=== PATIENT | male | born 1980 | race African-American/Black ===

== ENCOUNTER 2016-09-28 09:33 | Inpatient (IN) | payer MEDICARE, MEDICAID ==
[~2016-09-28] VITALS: Ht 180.3 cm; Wt 83.0 kg
[2016-09-28] MEDS ORDERED: IV NORMAL SALINE 1000ML BAG 1,000 ML IV ONE (10:00)
[2016-09-28] MEDS ORDERED: HYDROCODONE/APAP 5/325MG TABLET. PO ONE (10:00)
[2016-09-28] MEDS ORDERED: ONDANSETRON ODT 4 MG TAB.RAPDIS PO ONE (10:00)
--- NOTE | 2016-09-28 10:10 | EKG ---
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
[2016-09-28 10:20] LABS: BILIRUBIN,URINE NEGATIVE (NEG); GLUCOSE,URINE >=1000 mg/dL (NEG); NITRITE,URINE NEGATIVE (NEG); PROTEIN,URINE NEGATIVE (NEG-TRACE); UROBILINOGEN,URINE 0.2 mg/dL (0.2 mg/dL)
[2016-09-28 10:23] LABS: BASO # 0.1 x10^3/uL (0.0-0.2); BASO % 1 % (0-3); EOS % 4 % (0-3); HEMATOCRIT 47.2 % (39.0-53.0); HEMOGLOBIN 15.4 g/dL (13.0-17.5); LYMPH # 2.7 x10^3/uL (1.0-4.8); LYMPH % 55 % (24-48); MEAN CORPUSCULAR HEMOGLOBIN 24 pg (25-35); MEAN CORPUSCULAR HGB CONC 33 g/dL (31-37); MEAN CORPUSCULAR VOLUME 74 fL (79-100); MONO % 7 % (0-9); NEUT % 33 % (31-73); PLATELET COUNT 301 x10^3/uL (140-400); RED BLOOD COUNT 6.35 x10^6/uL (4.30-5.70); RED CELL DISTRIBUTION WIDTH 12.8 % (11.5-14.5); WHITE BLOOD COUNT 4.9 x10^3/uL (4.0-11.0)
[2016-09-28 10:36] LABS: CALCIUM 9.6 mg/dL (8.5-10.1); GFR 101.7; POTASSIUM 4.4 mmol/L (3.5-5.1)
[2016-09-28 10:38] LABS: RBC,URINE 0 /HPF (0-2); WBC,URINE 0 /HPF (0-4)
[2016-09-28 10:39] LABS: BACTERIA,URINE 0 /HPF (0-FEW); SQUAMOUS EPITHELIAL CELL,UR OCC /LPF
--- NOTE | 2016-09-28 10:42 | RAD ---
Portable chest, 09/28/2016: History: Cough, chest pain The heart size and pulmonary vascularity are normal. No pulmonary infiltrates are seen. There is no evidence of pleural fluid. IMPRESSION: No acute cardiopulmonary abnormality is detected.
[2016-09-28 10:46] LABS: ALBUMIN 4.1 g/dL (3.4-5.0); DIRECT BILIRUBIN 0.2 mg/dL (0.0-0.2); TOTAL BILIRUBIN 0.6 mg/dL (0.2-1.0); TOTAL PROTEIN 7.4 g/dL (6.4-8.2)
[2016-09-28] MEDS ORDERED: ENOXAPARIN ** NOTE DOSE ** SYRINGE SQ ONE (11:00)
[2016-09-28] MEDS ORDERED: ASPIRIN 81 MG TAB.CHEW PO ONE (11:00)
[2016-09-28] MEDS ORDERED: ONDANSETRON PF 4 MG/2 ML VIAL. IV PRN (11:30)
[2016-09-28] MEDS: NITROGLYCERIN SUBLINGUAL 0.4 MG BOTTLE OF 25. SL PRN ×3 (11:42→11:53)
[2016-09-28] MEDS ORDERED: INSULIN REGULAR 100 UNIT/ML 10ML VIAL. IV ONE (11:45)
--- NOTE | 2016-09-28 11:50 | EKG ---
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
[2016-09-28] MEDS: MORPHINE SULFATE 2 MG/ML DISP.SYRIN. IV PRN ×3 (11:57→23:26)
--- NOTE | 2016-09-28 12:07 | ACF ---
Admission Forms Criteria MYOCARDIAL INFARCTION Clinical Indications for Admission to Inpatient Care (Place 'X' for any and all applicable criteria): Admission is indicated for ANY ONE of the following (1)(2)(3)(4): [X]I. Acute NM [ ]II. Contraindications and/or Inappropriate clinical situations for Observational Care in patients with Myocardial Infarction, when ANY ONE of the following is required: [ ]a) Patient with High risk of cardiac embolism (e.g, patients with previous cardiac embolism, LVEF < 40%, age >75 and patients with prosthetic valve) 18 [ ]b) Patient with Moderate risk including DM patient, CAD and patient aged 65-75 18 [ ]c) Patient with any change in cardiac biomarker especially troponin should be managed as high risk in an inpatient setting 19 [ ]d) Physician judgement irrespective of ECG and other diagnostic findings 20 [ ]III.General contraindications and/or Inappropriate clinical situations for Observational Care in patients with Myocardial Infarction, when ANY ONE of the following is required: [ ]a) Prediction of prolongation of LOS based on ANY ONE of the following may be considered as a contraindication for observational care 2, 3, 4, 5, 6, 7, 8, 9, 10, 11 [ ]i) Age > 65 yrs. [ ]ii) Patient arriving by ambulance [ ]iii) Patient with high acuity [ ]iv) Patient requiring vital sign monitoring [ ]v) Patient on IV medication [ ]b) Systolic blood pressures 180mmHg 3,12 [ ]c) Patient with altered mental status including delirium and other alteration of consciousness, (3) [ ]d) Patient whose discharge disposition will be to a usp home or rehabilitation home should not be managed in Emergency Department Observation Unit. CMS rule requires 3 days hospital stay before such placement. 3,13 [ ]e) Patient with failure to thrive due to broad array of etiologies 3 ,16,17 [ ]f) Inability to ambulate 3,14 Extended stay beyond goal length of stay may be needed for (1)(18)(20)(24)(25): [ ]a) Hemodynamic instability, persisting symptoms after intensive medical management, or recurring severe, prolonged symptoms [ ]b) Intravascular procedural complications such as acute vessel closure, stent thrombosis, stent malposition, or vessel dissection (26)(27)(28) [ ]c) Extravascular procedural complications such as retroperitoneal hematoma , pericardial effusion, or cardiac tamponade [ ]d) Entry site complications causing bleeding, hematoma or distal ischemia and requiring ongoing monitoring, surgical repair or surgical thrombectomy(29) [ ]e) Dangerous arrhythmia [ ]f) Complicated percutaneous coronary intervention (e.g., unsuccessful percutaneous coronary intervention or percutaneous coronary intervention of non- [place] vessel) [ ]g) Urgent or emergent surgery for complications of NM (e.g., ventricular rupture, valvular insufficiency) [ ]h) Surgical revascularization via coronary artery bypass graft [ ]i) Heart failure (e.g., pulmonary edema) [ ]j) Unstable pulmonary comorbidities, including COPD or pneumonia (31) [ ]k) Acute renal failure The original [employer] content created by [employer] has been revised. The portions of the content which have been revised are identified through the use of italic text or in bold, and [facility] has neither reviewed nor approved the modified material. All other unmodified content is copyright [facility] [employer] Please see references footnoted in the original [facility] edition 2016 Admission Criteria Met?: Yes MARIYA LAGUNA Sep 28, 2016 12:07
--- NOTE | 2016-09-28 12:22 | PHYS DOC ---
Past Medical History Past Medical History: No Pertinent History Past Surgical History: No Surgical History Alcohol Use: None Drug Use: None Adult General Chief Complaint Chief Complaint: MULTIPLE COMPLAINTS HPI HPI 36-year-old male presenting to the emergency department with chest pain that he describes as substernal pressure. This all started approximately 48 hours ago when he woke up from his sleep with a pressure in the chest. He reports it feeling like a GERD-like sensation. He tried taking [id number] medications for acid suppression which did not improve his symptoms. His pain is intermittent. It is nonradiating. He denies alleviating or exacerbating factors. Review of systems is negative for abdominal pain nausea vomiting diaphoresis. He denies numbness weakness or tingling. All other review of systems is negative unless otherwise noted in history of present illness. Review of Systems Review of Systems SEE ABOVE. Current Medications Current Medications Current Medications Medications (Trade) Dose Ordered Sig/Joe Start Time Stop Time Status Last Admin Dose Admin Acetaminophen/ Hydrocodone Bitart (Lortab 5/325) 2 tab 1X ONCE 09/28/16 10:00 09/28/16 10:01 DC 09/28/16 11:17 2 TAB Aspirin (Children'S Aspirin) 324 mg 1X ONCE 09/28/16 11:00 09/28/16 11:01 DC 09/28/16 11:18 324 MG Enoxaparin Sodium (Lovenox 100mg Syringe) 100 mg 1X ONCE 09/28/16 11:00 09/28/16 11:01 DC 09/28/16 11:25 100 MG Insulin Human Regular (Novolin R Vial) 10 unit 1X ONCE 09/28/16 11:45 09/28/16 11:46 DC 09/28/16 11:43 10 UNIT Morphine Sulfate 2 mg PRN Q2HR PRN 09/28/16 11:30 09/29/16 11:29 Nitroglycerin (Nitrostat) 0.4 mg PRN Q5MIN PRN 09/28/16 11:00 09/28/16 11:53 0.4 MG Ondansetron HCl (Zofran Odt) 4 mg 1X ONCE 09/28/16 10:00 09/28/16 10:01 DC 09/28/16 11:25 4 MG Ondansetron HCl (Zofran) 4 mg PRN Q8HRS PRN 09/28/16 11:30 09/29/16 11:29 Sodium Chloride (Iv Sodium Chloride 0.9% 1000ml Bag) 1,000 ml @ 1,000 mls/hr 1X ONCE 09/28/16 10:00 09/28/16 10:59 DC 09/28/16 11:18 1,000 MLS/HR Allergies Allergies Allergies Coded Allergies Type Severity Reaction Last Updated Verified No Known Drug Allergies 12/23/13 No Physical Exam Physical Exam Constitutional: Well developed, well nourished, no acute distress, non-toxic appearance. HENT: Normocephalic, atraumatic, bilateral external ears normal, oropharynx moist, no oral exudates, nose normal. [] Eyes: PERRLA, EOMI, conjunctiva normal, no discharge. [] Neck: Normal range of motion, no tenderness, supple, no stridor. Cardiovascular:Heart rate regular rhythm, no murmur [] Lungs & Thorax: Bilateral breath sounds clear to auscultation [] Abdomen: Bowel sounds normal, soft, no tenderness, no masses, no pulsatile masses. Skin: Warm, dry, no erythema, no rash. [] Back: No tenderness, no CVA tenderness. Extremities: No tenderness, no cyanosis, no clubbing, ROM intact, no edema. [] Neurologic: Alert and oriented X 3, normal motor function, normal sensory function, no focal deficits noted. [] Psychologic: Affect normal, judgement normal, mood normal. [] Current Patient Data Vital Signs Vital Signs Date Time Temp Pulse Resp B/P Pulse Ox O2 Delivery O2 Flow Rate FiO2 09/28/16 11:57 116 18 97 Room Air 09/28/16 09:45 97.2 97.2 Lab Values Laboratory Tests Test 09/28/16 10:00 White Blood Count 4.9x10^3/uL (4.0-11.0) Red Blood Count 6.35x10^6/uL (4.30-5.70) H Hemoglobin 15.4g/dL (13.0-17.5) Hematocrit 47.2% (39.0-53.0) Mean Corpuscular Volume 74fL (79-100) L Mean Corpuscular Hemoglobin 24pg (25-35) L Mean Corpuscular Hemoglobin Concent 33g/dL (31-37) Red Cell Distribution Width 12.8% (11.5-14.5) Platelet Count 301x10^3/uL (140-400) Neutrophils (%) (Auto) 33% (31-73) Lymphocytes (%) (Auto) 55% (24-48) H Monocytes (%) (Auto) 7% (0-9) Eosinophils (%) (Auto) 4% (0-3) H Basophils (%) (Auto) 1% (0-3) Neutrophils # (Auto) 1.6x10^3uL (1.8-7.7) L Lymphocytes # (Auto) 2.7x10^3/uL (1.0-4.8) Monocytes # (Auto) 0.3x10^3/uL (0.0-1.1) Eosinophils # (Auto) 0.2x10^3/uL (0.0-0.7) Basophils # (Auto) 0.1x10^3/uL (0.0-0.2) Urine Collection Type Unknown Urine Color Yellow Urine Clarity Clear Urine pH 5.0 Urine Specific [place] >=1.030 Urine Protein Negativemg/dL (NEG-TRACE) Urine Glucose (UA) >=1000mg/dL (NEG) Urine Ketones (Stick) Tracemg/dL (NEG) Urine Blood Negative (NEG) Urine Nitrite Negative (NEG) Urine Bilirubin Negative (NEG) Urine Urobilinogen Dipstick 0.2mg/dL (0.2 mg/dL) Urine Leukocyte Esterase Negative (NEG) Urine RBC 0/HPF (0-2) Urine WBC 0/HPF (0-4) Urine Squamous Epithelial Cells Occ/LPF Urine Bacteria 0/HPF (0-FEW) Urine Mucus Slight/LPF Sodium Level 135mmol/L (136-145) L Potassium Level 4.4mmol/L (3.5-5.1) Chloride Level 95mmol/L (98-107) L Carbon Dioxide Level 30mmol/L (21-32) Anion Gap 10 (6-14) Blood Urea Nitrogen 9mg/dL (8-26) Creatinine 1.0mg/dL (0.7-1.3) Estimated GFR (Cockcroft-Gault) 101.7 Glucose Level 405mg/dL (70-99) H Calcium Level 9.6mg/dL (8.5-10.1) Total Bilirubin 0.6mg/dL (0.2-1.0) Direct Bilirubin 0.2mg/dL (0.0-0.2) Aspartate Amino Transferase (AST) 15U/L (15-37) Alanine Aminotransferase (ALT) 21U/L (16-63) Alkaline Phosphatase 72U/L (46-116) Troponin I Quantitative 0.232ng/mL (0.000-0.055) Total Protein 7.4g/dL (6.4-8.2) Albumin 4.1g/dL (3.4-5.0) Lipase 216U/L (73-393) Laboratory Tests 09/28/16 10:00 Laboratory Tests 09/28/16 10:00 EKG EKG [] EKG repeated 2 First EKG at 9:57 AM shows sinus rhythm with a tachycardic rate. [place] normal. Intervals are within normal limits. ST segments are congruent. Second EKG performed at 1058 shows no acute evolving changes. Radiology/Procedures Radiology/Procedures [] Course & Med Decision Making Course & Med Decision Making Pertinent Labs and Imaging studies reviewed. (See chart for details) [] 36-year-old male presenting to the emergency department today with chest pain over the past 48 hours. Vital signs show a tachycardic otherwise unremarkable afebrile. Aspirin given, nitroglycerin given. On examination the patient has clear lungs. Otherwise physical exam unremarkable. EKG did not meet STEMI criteria. CBC unremarkable. Urinalysis showed dehydration with high glucosuria. Chemistry panel otherwise showed elevated glucose with increasing troponin. On reexamination after nitroglycerin was given the patient's pain improved. He was given Lovenox. I discussed the case with our local [place] truck driver Dr. mena. The patient was then admitted to our cardiovascular care unit for further evaluation workup and care. Echo ordered. Cardiology consult placed. Dragon Disclaimer Dragon Disclaimer This electronic medical record was generated, in whole or in part, using a voice recognition dictation system. Departure Departure Impression: Primary Impression: Elevated troponin Additional Impressions: NSTEMI (non-ST elevated myocardial infarction) Chest pain Disposition: ADMITTED INPATIENT Admitting Physician: Bruce Moreira Condition: STABLE Referrals: NO PCP (PCP) Problem Qualifiers CAMPBELL CASTELLANOS MD Sep 28, 2016 12:22
[2016-09-28 12:30] VITALS: BP 91/58
--- NOTE | 2016-09-28 12:56 | PDOC2 ---
NANI WADSWORTH TREE CHIPPER 09/28/16 1256: CARDIAC CONSULT DATE OF CONSULT Date of Consult DATE: 09/28/16 TIME: 12:47 REASON FOR CONSULT Reason for Consult: Positive troponin REFERRING PHYSICIAN Referring Physician: Bryn SOURCE Source: Chart review, Patient HISTORY OF PRESENT ILLNESS HISTORY OF PRESENT ILLNESS This is a pleasant 36 yo male admitted for complains of chest pain. Reports that he has been having intermittent mid chest pain in the last week. He thought it was indigestion and actually he has been trying to relieve with pecid and tums. It helped to a certain degree and but pain kept on going on. In the last 48 hours he has had increasing episodes of retrosternal sharp (woke him up with nightmare) to pressure discomfort that radiated to his right jaw and bilateral upper arms. Positive for nausea, diaphoresis, dizziness. No palpitations. Denies any prior medical history. Denies any fever chills, recent injury or falls. No hx of VTE nor any childhood heart disease. He does not take any routine Rx or OTC meds. PAST MEDICAL HISTORY Past Medical History No pertinent history PAST SURGICAL HISTORY Past Surgical History: Cataract Removal FAMILY HISTORY Family History: Coronary Artery Disease (father side of family aunts and uncles ) SOCIAL HISTORY Smoke: No ALCOHOL: none Drugs: None Lives: with Family CURRENT MEDICATIONS CURRENT MEDICATIONS Current Medications Medications (Trade) Dose Ordered Sig/Joe Route PRN Reason Start Time Stop Time Status Last Admin Dose Admin Sodium Chloride (Iv Sodium Chloride 0.9% 1000ml Bag) 1,000 ml @ 1,000 mls/hr 1X ONCE IV 09/28/16 10:00 09/28/16 10:59 DC 09/28/16 11:18 Acetaminophen/ Hydrocodone Bitart (Lortab 5/325) 2 tab 1X ONCE PO 09/28/16 10:00 09/28/16 10:01 DC 09/28/16 11:17 Ondansetron HCl (Zofran Odt) 4 mg 1X ONCE PO 09/28/16 10:00 09/28/16 10:01 DC 09/28/16 11:25 Aspirin (Children'S Aspirin) 324 mg 1X ONCE PO 09/28/16 11:00 09/28/16 11:01 DC 09/28/16 11:18 Nitroglycerin (Nitrostat) 0.4 mg PRN Q5MIN PRN SL CHEST PAIN 09/28/16 11:00 09/28/16 11:53 Morphine Sulfate 2 mg PRN Q1HR PRN IV SEVERE PAIN 09/28/16 11:00 09/28/16 11:57 Enoxaparin Sodium (Lovenox 100mg Syringe) 100 mg 1X ONCE SQ 09/28/16 11:00 09/28/16 11:01 DC 09/28/16 11:25 Insulin Human Regular (Novolin R Vial) 10 unit 1X ONCE IV 09/28/16 11:45 09/28/16 11:46 DC 09/28/16 11:43 ALLERGIES ALLERGIES: Coded Allergies: No Known Drug Allergies (Unverified , 12/23/13) ROS Review of System 14 point ROS evaluated with pertinent positives noted per HPI PHYSICAL EXAM General: Alert, Oriented X3, Cooperative, No acute distress HEENT: Atraumatic, Mucous membr. moist/pink Lungs: Clear to auscultation, Normal air movement Heart: Regular rate, Normal S1, Normal S2, No murmurs Abdomen: Soft, No tenderness Extremities: No cyanosis, No edema Skin: No significant lesion Neuro: Normal speech, Normal tone, Sensation intact Psych/Mental Status: Mental status NL, Mood NL MUSCULOSKELETAL: Osteoarthritic changes both hands VITALS VITALS Vital Signs Date Time Temp Pulse Resp B/P Pulse Ox O2 Delivery O2 Flow Rate FiO2 09/28/16 11:57 116 18 97 Room Air 09/28/16 09:45 97.2 97.2 LABS Lab: Laboratory Tests Test 09/28/16 10:00 White Blood Count 4.9x10^3/uL (4.0-11.0) Red Blood Count 6.35x10^6/uL (4.30-5.70) Hemoglobin 15.4g/dL (13.0-17.5) Hematocrit 47.2% (39.0-53.0) Mean Corpuscular Volume 74fL (79-100) Mean Corpuscular Hemoglobin 24pg (25-35) Mean Corpuscular Hemoglobin Concent 33g/dL (31-37) Red Cell Distribution Width 12.8% (11.5-14.5) Platelet Count 301x10^3/uL (140-400) Neutrophils (%) (Auto) 33% (31-73) Lymphocytes (%) (Auto) 55% (24-48) Monocytes (%) (Auto) 7% (0-9) Eosinophils (%) (Auto) 4% (0-3) Basophils (%) (Auto) 1% (0-3) Neutrophils # (Auto) 1.6x10^3uL (1.8-7.7) Lymphocytes # (Auto) 2.7x10^3/uL (1.0-4.8) Monocytes # (Auto) 0.3x10^3/uL (0.0-1.1) Eosinophils # (Auto) 0.2x10^3/uL (0.0-0.7) Basophils # (Auto) 0.1x10^3/uL (0.0-0.2) Urine Collection Type Unknown Urine Color Yellow Urine Clarity Clear Urine pH 5.0 Urine Specific [place] >=1.030 Urine Protein Negativemg/dL (NEG-TRACE) Urine Glucose (UA) >=1000mg/dL (NEG) Urine Ketones (Stick) Tracemg/dL (NEG) Urine Blood Negative (NEG) Urine Nitrite Negative (NEG) Urine Bilirubin Negative (NEG) Urine Urobilinogen Dipstick 0.2mg/dL (0.2 mg/dL) Urine Leukocyte Esterase Negative (NEG) Urine RBC 0/HPF (0-2) Urine WBC 0/HPF (0-4) Urine Squamous Epithelial Cells Occ/LPF Urine Bacteria 0/HPF (0-FEW) Urine Mucus Slight/LPF Sodium Level 135mmol/L (136-145) Potassium Level 4.4mmol/L (3.5-5.1) Chloride Level 95mmol/L (98-107) Carbon Dioxide Level 30mmol/L (21-32) Anion Gap 10 (6-14) Blood Urea Nitrogen 9mg/dL (8-26) Creatinine 1.0mg/dL (0.7-1.3) Estimated GFR (Cockcroft-Gault) 101.7 Glucose Level 405mg/dL (70-99) Calcium Level 9.6mg/dL (8.5-10.1) Total Bilirubin 0.6mg/dL (0.2-1.0) Direct Bilirubin 0.2mg/dL (0.0-0.2) Aspartate Amino Transf (AST/SGOT) 15U/L (15-37) Alanine Aminotransferase (ALT/SGPT) 21U/L (16-63) Alkaline Phosphatase 72U/L (46-116) Troponin I Quantitative 0.232ng/mL (0.000-0.055) Total Protein 7.4g/dL (6.4-8.2) Albumin 4.1g/dL (3.4-5.0) Lipase 216U/L (73-393) ASSESSMENT/PLAN ASSESSMENT/PLAN 1. NSTEMI 2. Hyperglycemia: likely new DM2 3. Obesity Recommendations 1. EKG reviewed with inferolateral changes initially then better on second EKG. TTE now. 2. ASA. Received lovenox in ED 3. TSH, lipid panel, A1C 4. Discussed [facility] risks and benefits and agreeable to proceed. 5. Secondary prevention to commence post [facility] Problems: FRANCISCO JAVIER CONDE MD 09/28/16 1403: CARDIAC CONSULT ALLERGIES ALLERGIES: Coded Allergies: No Known Drug Allergies (Unverified , 12/23/13) ASSESSMENT/PLAN ASSESSMENT/PLAN Patient seen and examined. Agree with GAS CONTROLLER's assessment and plan. Patient with chest pain showed dynamic changes on EKG and has slight elevation of troponin level consistent with non-STEMI. 2-D echo showed anteroseptal wall motion abnormality. We'll proceed with cardiac catheterization and possible angioplasty. Risks and benefits were explained. Thank you for the consultation. Problems: NANI WADSWORTH APRN Sep 28, 2016 12:56 FRANCISCO JAVIER CONDE MD Sep 28, 2016 14:03
[2016-09-28 13:34] LABS: CHOLESTEROL/HDL RATIO 2.4
--- NOTE | 2016-09-28 13:40 | PDOC1 ---
History and Physical Past Medical History Cardiovascular: No pertinent hx Past Surgical History Past Surgical History: No pertinent history Family History Family History: Coronary Artery Disease, Hypertension Social History Smoke: No ALCOHOL: none Drugs: None Current Problem List Problem List Problems Medical Problems: (1) Chest pain Status: Acute (2) Elevated troponin Status: Acute (3) NSTEMI (non-ST elevated myocardial infarction) Status: Acute Current Medications Current Medications Current Medications Medications (Trade) Dose Ordered Sig/Joe Start Time Stop Time Status Last Admin Dose Admin Acetaminophen/ Hydrocodone Bitart (Lortab 5/325) 2 tab 1X ONCE 09/28/16 10:00 09/28/16 10:01 DC 09/28/16 11:17 2 TAB Aspirin (Children'S Aspirin) 324 mg 1X ONCE 09/28/16 11:00 09/28/16 11:01 DC 09/28/16 11:18 324 MG Enoxaparin Sodium (Lovenox 100mg Syringe) 100 mg 1X ONCE 09/28/16 11:00 09/28/16 11:01 DC 09/28/16 11:25 100 MG Insulin Human Regular (Novolin R Vial) 10 unit 1X ONCE 09/28/16 11:45 09/28/16 11:46 DC 09/28/16 11:43 10 UNIT Morphine Sulfate 2 mg PRN Q2HR PRN 09/28/16 11:30 09/29/16 11:29 Nitroglycerin (Nitrostat) 0.4 mg PRN Q5MIN PRN 09/28/16 11:00 09/28/16 11:53 0.4 MG Ondansetron HCl (Zofran Odt) 4 mg 1X ONCE 09/28/16 10:00 09/28/16 10:01 DC 09/28/16 11:25 4 MG Ondansetron HCl (Zofran) 4 mg PRN Q8HRS PRN 09/28/16 11:30 09/29/16 11:29 Sodium Chloride (Iv Sodium Chloride 0.9% 1000ml Bag) 1,000 ml @ 1,000 mls/hr 1X ONCE 09/28/16 10:00 09/28/16 10:59 DC 09/28/16 11:18 1,000 MLS/HR Allergies Allergies Allergies Coded Allergies Type Severity Reaction Last Updated Verified No Known Drug Allergies 12/23/13 No ROS Review of System CONSTITUTIONAL: No fever or chills EYES: No recent changes SKIN: No rash or itching CARDIOVASCULAR: chest pain, no syncope, palpitations, or edema left arm pain RESPIRATORY: No SOB or cough GASTROINTESTINAL: No nausea, vomiting or abdominal pain NEUROLOGICAL: No headaches or weakness ENDOCRINE: No cold or heat intolerance GENITOURINARY: No urgency or frequency of urination MUSCULOSKELETAL: No back pain or joint pain LYMPHATICS: No enlarged lymph nodes PSYCHIATRIC: No anxiety or depression Physical Exam Physical Exam GEN.: No apparent distress. Alert and oriented. HEENT: Head is normocephalic, atraumatic NECK: Supple. no jvd LUNGS: Clear to auscultation. normal airflow HEART: RRR, S1, S2 present. Peripheral pulses intact ABDOMEN: Soft, nontender. Positive bowel sounds. EXTREMITIES: Without any cyanosis. NEUROLOGIC: Normal speech, normal tone PSYCHIATRIC: Normal affect, normal mood. SKIN: No visible ulcerations Vitals Vitals Vital Signs Date Time Temp Pulse Resp B/P Pulse Ox O2 Delivery O2 Flow Rate FiO2 09/28/16 12:30 98.7 112 30 91/58 98 Room Air 98.7 Labs Labs Laboratory Tests Test 09/28/16 10:00 White Blood Count 4.9x10^3/uL (4.0-11.0) Red Blood Count 6.35x10^6/uL (4.30-5.70) Hemoglobin 15.4g/dL (13.0-17.5) Hematocrit 47.2% (39.0-53.0) Mean Corpuscular Volume 74fL (79-100) Mean Corpuscular Hemoglobin 24pg (25-35) Mean Corpuscular Hemoglobin Concent 33g/dL (31-37) Red Cell Distribution Width 12.8% (11.5-14.5) Platelet Count 301x10^3/uL (140-400) Neutrophils (%) (Auto) 33% (31-73) Lymphocytes (%) (Auto) 55% (24-48) Monocytes (%) (Auto) 7% (0-9) Eosinophils (%) (Auto) 4% (0-3) Basophils (%) (Auto) 1% (0-3) Neutrophils # (Auto) 1.6x10^3uL (1.8-7.7) Lymphocytes # (Auto) 2.7x10^3/uL (1.0-4.8) Monocytes # (Auto) 0.3x10^3/uL (0.0-1.1) Eosinophils # (Auto) 0.2x10^3/uL (0.0-0.7) Basophils # (Auto) 0.1x10^3/uL (0.0-0.2) Urine Collection Type Unknown Urine Color Yellow Urine Clarity Clear Urine pH 5.0 Urine Specific [place] >=1.030 Urine Protein Negativemg/dL (NEG-TRACE) Urine Glucose (UA) >=1000mg/dL (NEG) Urine Ketones (Stick) Tracemg/dL (NEG) Urine Blood Negative (NEG) Urine Nitrite Negative (NEG) Urine Bilirubin Negative (NEG) Urine Urobilinogen Dipstick 0.2mg/dL (0.2 mg/dL) Urine Leukocyte Esterase Negative (NEG) Urine RBC 0/HPF (0-2) Urine WBC 0/HPF (0-4) Urine Squamous Epithelial Cells Occ/LPF Urine Bacteria 0/HPF (0-FEW) Urine Mucus Slight/LPF Sodium Level 135mmol/L (136-145) Potassium Level 4.4mmol/L (3.5-5.1) Chloride Level 95mmol/L (98-107) Carbon Dioxide Level 30mmol/L (21-32) Anion Gap 10 (6-14) Blood Urea Nitrogen 9mg/dL (8-26) Creatinine 1.0mg/dL (0.7-1.3) Estimated GFR (Cockcroft-Gault) 101.7 Glucose Level 405mg/dL (70-99) Calcium Level 9.6mg/dL (8.5-10.1) Total Bilirubin 0.6mg/dL (0.2-1.0) Direct Bilirubin 0.2mg/dL (0.0-0.2) Aspartate Amino Transf (AST/SGOT) 15U/L (15-37) Alanine Aminotransferase (ALT/SGPT) 21U/L (16-63) Alkaline Phosphatase 72U/L (46-116) Troponin I Quantitative 0.232ng/mL (0.000-0.055) Total Protein 7.4g/dL (6.4-8.2) Albumin 4.1g/dL (3.4-5.0) Triglycerides Level 113mg/dL (0-150) Cholesterol Level 124mg/dL (0-200) LDL Cholesterol, Calculated 49mg/dL (0-100) VLDL Cholesterol, Calculated 23mg/dL (0-40) HDL Cholesterol 52mg/dL (40-60) Cholesterol/HDL Ratio 2.4 Lipase 216U/L (73-393) Laboratory Tests Test 09/28/16 10:00 White Blood Count 4.9x10^3/uL (4.0-11.0) Red Blood Count 6.35x10^6/uL (4.30-5.70) Hemoglobin 15.4g/dL (13.0-17.5) Hematocrit 47.2% (39.0-53.0) Mean Corpuscular Volume 74fL (79-100) Mean Corpuscular Hemoglobin 24pg (25-35) Mean Corpuscular Hemoglobin Concent 33g/dL (31-37) Red Cell Distribution Width 12.8% (11.5-14.5) Platelet Count 301x10^3/uL (140-400) Neutrophils (%) (Auto) 33% (31-73) Lymphocytes (%) (Auto) 55% (24-48) Monocytes (%) (Auto) 7% (0-9) Eosinophils (%) (Auto) 4% (0-3) Basophils (%) (Auto) 1% (0-3) Neutrophils # (Auto) 1.6x10^3uL (1.8-7.7) Lymphocytes # (Auto) 2.7x10^3/uL (1.0-4.8) Monocytes # (Auto) 0.3x10^3/uL (0.0-1.1) Eosinophils # (Auto) 0.2x10^3/uL (0.0-0.7) Basophils # (Auto) 0.1x10^3/uL (0.0-0.2) Urine Collection Type Unknown Urine Color Yellow Urine Clarity Clear Urine pH 5.0 Urine Specific [place] >=1.030 Urine Protein Negativemg/dL (NEG-TRACE) Urine Glucose (UA) >=1000mg/dL (NEG) Urine Ketones (Stick) Tracemg/dL (NEG) Urine Blood Negative (NEG) Urine Nitrite Negative (NEG) Urine Bilirubin Negative (NEG) Urine Urobilinogen Dipstick 0.2mg/dL (0.2 mg/dL) Urine Leukocyte Esterase Negative (NEG) Urine RBC 0/HPF (0-2) Urine WBC 0/HPF (0-4) Urine Squamous Epithelial Cells Occ/LPF Urine Bacteria 0/HPF (0-FEW) Urine Mucus Slight/LPF Sodium Level 135mmol/L (136-145) Potassium Level 4.4mmol/L (3.5-5.1) Chloride Level 95mmol/L (98-107) Carbon Dioxide Level 30mmol/L (21-32) Anion Gap 10 (6-14) Blood Urea Nitrogen 9mg/dL (8-26) Creatinine 1.0mg/dL (0.7-1.3) Estimated GFR (Cockcroft-Gault) 101.7 Glucose Level 405mg/dL (70-99) Calcium Level 9.6mg/dL (8.5-10.1) Total Bilirubin 0.6mg/dL (0.2-1.0) Direct Bilirubin 0.2mg/dL (0.0-0.2) Aspartate Amino Transf (AST/SGOT) 15U/L (15-37) Alanine Aminotransferase (ALT/SGPT) 21U/L (16-63) Alkaline Phosphatase 72U/L (46-116) Troponin I Quantitative 0.232ng/mL (0.000-0.055) Total Protein 7.4g/dL (6.4-8.2) Albumin 4.1g/dL (3.4-5.0) Triglycerides Level 113mg/dL (0-150) Cholesterol Level 124mg/dL (0-200) LDL Cholesterol, Calculated 49mg/dL (0-100) VLDL Cholesterol, Calculated 23mg/dL (0-40) HDL Cholesterol 52mg/dL (40-60) Cholesterol/HDL Ratio 2.4 Lipase 216U/L (73-393) VTE Prophylaxis Ordered VTE Prophylaxis Devices: Yes VTE Pharmacological Prophylaxi: Yes LINDA NELSON MD Sep 28, 2016 13:40
[2016-09-28] MEDS ORDERED: LIDOCAINE 2% 20 ML VIAL. ONE (13:44)
[2016-09-28] MEDS ORDERED: DEXTROSE 50% 25 GM / 50ML DISP.SYRIN. IV PRN (13:45)
[2016-09-28] MEDS ORDERED: IOHEXOL 300 MG/ML 100ML VIAL. ONE (13:50)
[2016-09-28] MEDS: IV NORMAL SALINE 1000ML BAG 1,000 ML IV SCH (13:51)
--- NOTE | 2016-09-28 13:55 | CARD ---
APPROVED REPORT EXAM: Two-dimensional and M-mode echocardiogram with Doppler and color Doppler. Other Information Quality : Good INDICATION Abnormal ECG Positive Troponin 2D DIMENSIONS Left Atrium(2D)2.8 (1.6-4.0cm)IVSd1.2 (0.7-1.1cm) Aortic Root(2D)2.8 (2.0-3.7cm)LVDd4.1 (3.9-5.9cm) LVOT Diameter2.0 (1.8-2.4cm)PWd1.2 (0.7-1.1cm) LVDs2.9 (2.5-4.0cm)FS (%) 22.5 % SV41.8 ml Aortic Valve AoV Peak Bari.110.1cm/sAoV VTI13.9cm AO Peak GR.4.9mmHgLVOT VTI 11.96cm AO Mean GR.3mmHgAVA (VTI)2.80cm2 Mitral Valve MV E Pqqiteat01.2cm/sMV DECEL [id number] MV A Dfehuhia09.6cm/sE/A Ratio0.7 TDI Lateral E' P. V10.88cm/sMedial E' P. V6.82cm/s E/Lateral E'3.3E/Medial E'5.3 Tricuspid Valve TR P. Ohqfkhbd388jp/sRAP [id number] TR Peak Gr.02bfYlDQVX00zqFn Pulmonary Vein S1 Nqqsmjio84.8cm/sS2 Labhnmpi34.12cm/s D2 Iyilbezk52.1cm/sPVa [id number] LEFT VENTRICLE The left ventricle is normal size. There is mild concentric left ventricular hypertrophy. The Ejectio n Fraction is estimated at 45-50%. Hypokinesis of mid to distal anteroseptal wall. Transmitral Dopple r flow pattern is Grade I-abnormal relaxation pattern. RIGHT VENTRICLE The right ventricle is normal size. The right ventricular systolic function is normal. ATRIA The left atrium size is normal. The right atrium size is normal. The interatrial septum is intact wit h no evidence for an atrial septal defect or patent foramen ovale as noted on 2-D or Doppler imaging. AORTIC VALVE The aortic valve is calcified but opens well. Doppler and Color Flow revealed no significant aortic r egurgitation. There is no significant aortic valvular stenosis. MITRAL VALVE The mitral valve is normal in structure and function. There is no evidence of mitral valve prolapse. There is no mitral valve stenosis. Doppler and Color-flow revealed trace mitral regurgitation. TRICUSPID VALVE The tricuspid valve is normal in structure and function. Doppler and Color Flow revealed trace tricus pid regurgitation. There is no pulmonary hypertension. The PA pressure was estimated at 27 mmHg. Ther e is no tricuspid valve stenosis. PULMONIC VALVE The pulmonary valve is normal in structure and function. Doppler and Color Flow revealed no pulmonic valvular regurgitation. There is no pulmonic valvular stenosis. GREAT VESSELS The aortic root is normal in size. The ascending aorta is normal in size. The IVC is normal in size a nd collapses >50% with inspiration. PERICARDIAL EFFUSION There is no evidence of significant pericardial effusion. Critical Notification Critical Value: No <Conclusion> Hypokinesis of mid to distal anteroseptal wall. The Ejection Fraction is estimated at 45-50%. Transmitral Doppler flow pattern is Grade I-abnormal relaxation pattern. Trace mitral regurgitation. Trace tricuspid regurgitation. There is no pulmonary hypertension. The PA pressure was estimated at 27 mmHg. There is no evidence of significant pericardial effusion.
--- NOTE | 2016-09-28 14:01 | PDOC ---
MODERATE SEDATION ASSESSMENT RISKS/ALTERNATIVES Risks/Alternatives Risks and alternatives of this type of sedation and procedure discussed with: RISK/ALTERNATIVES: Patient H & P ON CHART H & P H & P on chart and reviewed for co-morbid conditions and appropriate labs. H&P ON CHART: Yes STATUS PREG STATUS ASSESSED: N/A MEDS/ALLERGIES REVIEWED Meds/Allergies Reviewed Medications and Allergies including time and route of recently administered narcotics and sedatives. MEDS/ALLERGIES REVIEWED: Yes ASA RATING ASA RATING: II AIRWAY ASSESSMENT Airway Assessment Airway patency, oral function limitations, presence of caps, crowns, dentures, partials, and ability to extend neck assessed. AIRWAY ASSESSMENT: Yes MALLAMPATI SCORE MALLAMPATI SCORE: II PRE-SEDATION ASSESSMENT PRE-SEDATION ASSESSMENT: Yes FRANCISCO JAVIER CONDE MD Sep 28, 2016 14:01
[2016-09-28 14:22] LABS: BARBITURATES NEG (NEG); BENZODIAZEPINES NEG (NEG); CANNABINOIDS NEG (NEG); COCAINE NEG (NEG); ETHANOL, URINE NEG (NEG); METHADONE NEG (NEG); OPIATES NEG (NEG); PHENCYCLIDINE NEG (NEG)
[2016-09-28] MEDS ORDERED: VERAPAMIL 5 MG/2 ML VIAL. ONE (14:24)
[2016-09-28] MEDS ORDERED: MIDAZOLAM HCL/PF 5 MG/5 ML VIAL ONE (14:24)
[2016-09-28] MEDS ORDERED: FENTANYL PF 250 MCG/5 ML VIAL. ONE (14:24)
[2016-09-28] MEDS ORDERED: NITROGLYCERIN 200 MCG/2 ML SYRINGE FOR CATH/VASC LAB. ONE (14:24)
[2016-09-28] MEDS ORDERED: HEPARIN for IV BOLUS 10,000 UNIT/10 ML VIAL. ONE (14:24)
[2016-09-28] MEDS ORDERED: IOHEXOL 300 MG/ML 100ML VIAL. IART ONE (14:30)
[2016-09-28] MEDS ORDERED: HEPARIN for IV BOLUS 10,000 UNIT/10 ML VIAL. IART ONE (14:30)
[2016-09-28] MEDS ORDERED: VERAPAMIL 5 MG/2 ML VIAL. IART ONE (14:30)
[2016-09-28] MEDS ORDERED: MIDAZOLAM HCL/PF 5 MG/5 ML VIAL IV ONE (14:30)
[2016-09-28] MEDS ORDERED: NITROGLYCERIN 200 MCG/2 ML SYRINGE FOR CATH/VASC LAB. IART ONE (14:30)
[2016-09-28] MEDS ORDERED: FENTANYL PF 250 MCG/5 ML VIAL. IV ONE (14:30)
[2016-09-28] MEDS ORDERED: LIDOCAINE 2% 20 ML VIAL. IJ ONE (14:30)
[2016-09-28 14:55] VITALS: BP 71/35
[2016-09-28 15:00] VITALS: BP 97/63
--- NOTE | 2016-09-28 15:10 | CARD ---
APPROVED REPORT Procedure(s) performed: Left heart catheterization, selective coronary angiography and left ventricul ography via right transradial approach INDICATION The indication(s) include : non-STEMI . PROCEDURE NARRATIVE After explaining the risks, benefits and alternative options, informed consent was obtained from lulu ent. Patient was brought to the cardiac [facility] and right wrist was prepped and draped in the usual fashion after confirming a positive modified Erik's test. Arterial access was obtained in the rig t radial artery and a 6 Lao sheath was inserted. 6 Lao Yonatan catheter was used to perform azra ective angiography of the left and right coronary arteries. 6 Lao pigtail catheter was used to pe rform left ventriculography. Patient tolerated the procedure well. Hemostasis was achieved using TR band. There were no immediate complications. The following findings were noted. FINDINGS 1. Hemodynamics: Left ventricular end-diastolic pressure of 12 mmHg. No pullback gradient across th e aortic valve. 2. Left ventriculography: Normal left ventricle systolic function with ejection fraction estimated at 55-60%. No significant mitral regurgitation seen. 3. Coronary angiography: a. The left main coronary artery arose from the left sinus of Valsalva, gave rise to the left anteri or descending and left circumflex arteries and did not show any significant stenosis. b. The left anterior descending artery did not show any significant stenosis. c. The left circumflex artery did not show any significant stenosis. d. The right coronary artery was a large and dominant vessel arising from the right sinus of Valsalv a that did not show any significant stenosis. Conclusion 1. No significant coronary artery disease 2. Normal left ventricle systolic function with ejection fraction estimated at 55-60%. Recommendations Cardiac Risk Reduction Program Medical Therapy
[2016-09-28] MEDS ORDERED: IV 1/2 NORMAL SALINE 1,000 ML IV SCH (15:15)
[2016-09-28 16:00] VITALS: BP 133/82
[2016-09-28] MEDS: INSULIN ASPART 300 UNITS/3 ML INSULN.PEN SQ SCH (17:10)
[2016-09-28 19:31] VITALS: BP 133/86
[2016-09-28] MEDS ORDERED: OXYCODONE IR 5 MG TABLET. PO ONE (20:30)
--- NOTE | 2016-09-28 22:58 | HP ---
ADMIT DATE: 09/28/2016 CHIEF COMPLAINT: Chest pain. HISTORY OF PRESENT ILLNESS: This is a 36-year-old -[place] male patient with history of schizophrenia, paranoid, presented to the ER with intermittent chest pain for nearly 2 weeks; however, the chest pain got worse last night. He woke up in the middle of the night with a bad dream and also had a sharp chest pain with right upper extremity and right jaw pain and tingling, also had some tingling and numbness in the right lower extremity. He denies any other symptoms such as nausea or vomiting; however, is complaining of abdominal pain and right lower extremity pain. PAST MEDICAL HISTORY: Schizophrenia. PERSONAL HISTORY: Disabled. FAMILY HISTORY: Coronary artery disease from father side. PAST SURGICAL HISTORY: Cataract removal. LABORATORY FINDINGS: BMP: Sodium is 135, potassium 4.4, chloride is 95, anion gap is 10, creatinine is 1.0, glucose 405. Hematology: WBC is 4.9, hemoglobin is 15.9, MCV is 24. Toxicology is negative. Urine: Specific gravity is more than 1.030, protein is negative, glucose is positive, ketones trace, nitrites negative. IMAGING STUDIES: Chest x-ray: No acute cardiopulmonary process seen. EKG, personally reviewed, T-wave flattening seen in lateral leads. ASSESSMENT: 1. Chest pain, possible differential is acute coronary syndrome. 2. Rule out acute coronary syndrome. 3. Hyperglycemia. 4. Paranoid schizophrenia. 5. Obesity. PLAN: 1. The patient has been admitted to Critical Care Unit and Cardiology has been consulted. Initial set of troponins has mild elevation ____ typical symptomatology with family history and diabetes. Cardiology is considering cardiac catheterization. He received anticoagulation in the ED. 2. Risks and benefits discussed with the patient 3. Pain control with morphine. 4. We will continue with ____ medications and ____ transfer out of ICU in the a.m. 5. ____ and lipid panel pending. LINDA NELSON MD DR: KEVEN/nikolas JOB#: [id number] / [id number]
[2016-09-28 23:30] VITALS: BP 140/69
[2016-09-29 03:00] VITALS: BP 141/81
[2016-09-29] MEDS: IV NORMAL SALINE 1000ML BAG 1,000 ML IV SCH (03:13)
[2016-09-29] MEDS: MORPHINE SULFATE 2 MG/ML DISP.SYRIN. IV PRN ×2 (05:00→08:36)
[2016-09-29 07:10] LABS: CREATININE 0.9 mg/dL (0.7-1.3); GFR 114.9; POTASSIUM 4.4 mmol/L (3.5-5.1)
[2016-09-29 07:36] LABS: BASO % 1 % (0-3); EOS % 6 % (0-3); HEMATOCRIT 43.9 % (39.0-53.0); HEMOGLOBIN 14.1 g/dL (13.0-17.5); LYMPH # 2.7 x10^3/uL (1.0-4.8); LYMPH % 56 % (24-48); MEAN CORPUSCULAR HEMOGLOBIN 24 pg (25-35); MEAN CORPUSCULAR HGB CONC 32 g/dL (31-37); MEAN CORPUSCULAR VOLUME 75 fL (79-100); MONO % 7 % (0-9); NEUT % 31 % (31-73); PLATELET COUNT 257 x10^3/uL (140-400); RED BLOOD COUNT 5.85 x10^6/uL (4.30-5.70); WHITE BLOOD COUNT 4.8 x10^3/uL (4.0-11.0)
[2016-09-29 08:00] VITALS: BP 156/90
[2016-09-29] MEDS: INSULIN ASPART 300 UNITS/3 ML INSULN.PEN SQ SCH (08:44)
--- NOTE | 2016-09-29 10:52 | PDOC ---
PROGRESS NOTES Chief Complaint Chief Complaint Chest pain with elevated Troponin Negative Cardiac cath Shitzophrenia Anxiety DM Noncompliance History of Present Illness History of Present Illness Seen and examined Pt Aand O VSS DW RN Will DC if ok with cards Vitals Vitals Vital Signs Date Time Temp Pulse Resp B/P Pulse Ox O2 Delivery O2 Flow Rate FiO2 09/29/16 08:36 20 99 Room Air 09/29/16 03:00 99.1 141/81 99.1 09/28/16 16:00 84 09/28/16 15:04 3.0 Physical Exam General: Alert, Oriented X3, Cooperative, No acute distress Heart: Regular rate, Normal S1, Normal S2, No murmurs Lungs: Clear Abdomen: Soft, No tenderness Extremities: No cyanosis, No edema Skin: No significant lesion Labs LABS Laboratory Tests Test 09/28/16 12:45 09/28/16 17:07 09/28/16 17:40 09/28/16 20:37 Nasal Screen MRSA (PCR) Negative (Negative) Glucose (Fingerstick) 234mg/dL (70-99) 221mg/dL (70-99) Troponin I Quantitative 0.202ng/mL (0.000-0.055) Test 09/28/16 23:23 09/29/16 06:45 09/29/16 08:41 Troponin I Quantitative 0.208ng/mL (0.000-0.055) White Blood Count 4.8x10^3/uL (4.0-11.0) Red Blood Count 5.85x10^6/uL (4.30-5.70) Hemoglobin 14.1g/dL (13.0-17.5) Hematocrit 43.9% (39.0-53.0) Mean Corpuscular Volume 75fL (79-100) Mean Corpuscular Hemoglobin 24pg (25-35) Mean Corpuscular Hemoglobin Concent 32g/dL (31-37) Red Cell Distribution Width 13.0% (11.5-14.5) Platelet Count 257x10^3/uL (140-400) Neutrophils (%) (Auto) 31% (31-73) Lymphocytes (%) (Auto) 56% (24-48) Monocytes (%) (Auto) 7% (0-9) Eosinophils (%) (Auto) 6% (0-3) Basophils (%) (Auto) 1% (0-3) Neutrophils # (Auto) 1.5x10^3uL (1.8-7.7) Lymphocytes # (Auto) 2.7x10^3/uL (1.0-4.8) Monocytes # (Auto) 0.3x10^3/uL (0.0-1.1) Eosinophils # (Auto) 0.3x10^3/uL (0.0-0.7) Basophils # (Auto) 0.0x10^3/uL (0.0-0.2) Sodium Level 137mmol/L (136-145) Potassium Level 4.4mmol/L (3.5-5.1) Chloride Level 101mmol/L (98-107) Carbon Dioxide Level 29mmol/L (21-32) Anion Gap 7 (6-14) Blood Urea Nitrogen 9mg/dL (8-26) Creatinine 0.9mg/dL (0.7-1.3) Estimated GFR (Cockcroft-Gault) 114.9 Glucose Level 249mg/dL (70-99) Calcium Level 9.0mg/dL (8.5-10.1) Glucose (Fingerstick) 225mg/dL (70-99) Review of Systems Review of Systems co anxiety co hunger Refuses to take any meds for DM Assessment and Plan Assessmemt and Plan Problems Medical Problems: (1) Chest pain Status: Acute (2) Elevated troponin Status: Acute (3) NSTEMI (non-ST elevated myocardial infarction) Status: Acute Chest pain with elevated Troponin Negative Cardiac cath Shitzophrenia Anxiety DM Noncompliance DC if ok with cards See dictation Total time 31 miinutes Problems: Comment Review of Relevant I have reviewed the following items santi (where applicable) has been applied. Labs Laboratory Tests Test 09/28/16 10:00 09/28/16 12:45 09/28/16 17:07 09/28/16 17:40 White Blood Count 4.9x10^3/uL (4.0-11.0) Red Blood Count 6.35x10^6/uL (4.30-5.70) Hemoglobin 15.4g/dL (13.0-17.5) Hematocrit 47.2% (39.0-53.0) Mean Corpuscular Volume 74fL (79-100) Mean Corpuscular Hemoglobin 24pg (25-35) Mean Corpuscular Hemoglobin Concent 33g/dL (31-37) Red Cell Distribution Width 12.8% (11.5-14.5) Platelet Count 301x10^3/uL (140-400) Neutrophils (%) (Auto) 33% (31-73) Lymphocytes (%) (Auto) 55% (24-48) Monocytes (%) (Auto) 7% (0-9) Eosinophils (%) (Auto) 4% (0-3) Basophils (%) (Auto) 1% (0-3) Neutrophils # (Auto) 1.6x10^3uL (1.8-7.7) Lymphocytes # (Auto) 2.7x10^3/uL (1.0-4.8) Monocytes # (Auto) 0.3x10^3/uL (0.0-1.1) Eosinophils # (Auto) 0.2x10^3/uL (0.0-0.7) Basophils # (Auto) 0.1x10^3/uL (0.0-0.2) Urine Collection Type Unknown Urine Color Yellow Urine Clarity Clear Urine pH 5.0 Urine Specific [place] >=1.030 Urine Protein Negativemg/dL (NEG-TRACE) Urine Glucose (UA) >=1000mg/dL (NEG) Urine Ketones (Stick) Tracemg/dL (NEG) Urine Blood Negative (NEG) Urine Nitrite Negative (NEG) Urine Bilirubin Negative (NEG) Urine Urobilinogen Dipstick 0.2mg/dL (0.2 mg/dL) Urine Leukocyte Esterase Negative (NEG) Urine RBC 0/HPF (0-2) Urine WBC 0/HPF (0-4) Urine Squamous Epithelial Cells Occ/LPF Urine Bacteria 0/HPF (0-FEW) Urine Mucus Slight/LPF Sodium Level 135mmol/L (136-145) Potassium Level 4.4mmol/L (3.5-5.1) Chloride Level 95mmol/L (98-107) Carbon Dioxide Level 30mmol/L (21-32) Anion Gap 10 (6-14) Blood Urea Nitrogen 9mg/dL (8-26) Creatinine 1.0mg/dL (0.7-1.3) Estimated GFR (Cockcroft-Gault) 101.7 Glucose Level 405mg/dL (70-99) Hemoglobin A1c 13.5% (4.8-5.6) Calcium Level 9.6mg/dL (8.5-10.1) Total Bilirubin 0.6mg/dL (0.2-1.0) Direct Bilirubin 0.2mg/dL (0.0-0.2) Aspartate Amino Transf (AST/SGOT) 15U/L (15-37) Alanine Aminotransferase (ALT/SGPT) 21U/L (16-63) Alkaline Phosphatase 72U/L (46-116) Troponin I Quantitative 0.232ng/mL (0.000-0.055) 0.202ng/mL (0.000-0.055) Total Protein 7.4g/dL (6.4-8.2) Albumin 4.1g/dL (3.4-5.0) Triglycerides Level 113mg/dL (0-150) Cholesterol Level 124mg/dL (0-200) LDL Cholesterol, Calculated 49mg/dL (0-100) VLDL Cholesterol, Calculated 23mg/dL (0-40) HDL Cholesterol 52mg/dL (40-60) Cholesterol/HDL Ratio 2.4 Lipase 216U/L (73-393) Thyroid Stimulating Hormone (TSH) 0.916uIU/mL (0.358-3.74) Urine Opiates Screen Neg (NEG) Urine Methadone Screen Neg (NEG) Urine Barbiturates Neg (NEG) Urine Phencyclidine Screen Neg (NEG) Urine Amphetamine/Methamphetamine Neg (NEG) Urine Benzodiazepines Screen Neg (NEG) Urine Cocaine Screen Neg (NEG) Urine Cannabinoids Screen Neg (NEG) Urine Ethyl Alcohol Neg (NEG) Nasal Screen MRSA (PCR) Negative (Negative) Glucose (Fingerstick) 234mg/dL (70-99) Test 09/28/16 20:37 09/28/16 23:23 09/29/16 06:45 09/29/16 08:41 Glucose (Fingerstick) 221mg/dL (70-99) 225mg/dL (70-99) Troponin I Quantitative 0.208ng/mL (0.000-0.055) White Blood Count 4.8x10^3/uL (4.0-11.0) Red Blood Count 5.85x10^6/uL (4.30-5.70) Hemoglobin 14.1g/dL (13.0-17.5) Hematocrit 43.9% (39.0-53.0) Mean Corpuscular Volume 75fL (79-100) Mean Corpuscular Hemoglobin 24pg (25-35) Mean Corpuscular Hemoglobin Concent 32g/dL (31-37) Red Cell Distribution Width 13.0% (11.5-14.5) Platelet Count 257x10^3/uL (140-400) Neutrophils (%) (Auto) 31% (31-73) Lymphocytes (%) (Auto) 56% (24-48) Monocytes (%) (Auto) 7% (0-9) Eosinophils (%) (Auto) 6% (0-3) Basophils (%) (Auto) 1% (0-3) Neutrophils # (Auto) 1.5x10^3uL (1.8-7.7) Lymphocytes # (Auto) 2.7x10^3/uL (1.0-4.8) Monocytes # (Auto) 0.3x10^3/uL (0.0-1.1) Eosinophils # (Auto) 0.3x10^3/uL (0.0-0.7) Basophils # (Auto) 0.0x10^3/uL (0.0-0.2) Sodium Level 137mmol/L (136-145) Potassium Level 4.4mmol/L (3.5-5.1) Chloride Level 101mmol/L (98-107) Carbon Dioxide Level 29mmol/L (21-32) Anion Gap 7 (6-14) Blood Urea Nitrogen 9mg/dL (8-26) Creatinine 0.9mg/dL (0.7-1.3) Estimated GFR (Cockcroft-Gault) 114.9 Glucose Level 249mg/dL (70-99) Calcium Level 9.0mg/dL (8.5-10.1) Laboratory Tests Test 09/28/16 12:45 09/28/16 17:07 09/28/16 17:40 09/28/16 20:37 Nasal Screen MRSA (PCR) Negative (Negative) Glucose (Fingerstick) 234mg/dL (70-99) 221mg/dL (70-99) Troponin I Quantitative 0.202ng/mL (0.000-0.055) Test 09/28/16 23:23 09/29/16 06:45 09/29/16 08:41 Troponin I Quantitative 0.208ng/mL (0.000-0.055) White Blood Count 4.8x10^3/uL (4.0-11.0) Red Blood Count 5.85x10^6/uL (4.30-5.70) Hemoglobin 14.1g/dL (13.0-17.5) Hematocrit 43.9% (39.0-53.0) Mean Corpuscular Volume 75fL (79-100) Mean Corpuscular Hemoglobin 24pg (25-35) Mean Corpuscular Hemoglobin Concent 32g/dL (31-37) Red Cell Distribution Width 13.0% (11.5-14.5) Platelet Count 257x10^3/uL (140-400) Neutrophils (%) (Auto) 31% (31-73) Lymphocytes (%) (Auto) 56% (24-48) Monocytes (%) (Auto) 7% (0-9) Eosinophils (%) (Auto) 6% (0-3) Basophils (%) (Auto) 1% (0-3) Neutrophils # (Auto) 1.5x10^3uL (1.8-7.7) Lymphocytes # (Auto) 2.7x10^3/uL (1.0-4.8) Monocytes # (Auto) 0.3x10^3/uL (0.0-1.1) Eosinophils # (Auto) 0.3x10^3/uL (0.0-0.7) Basophils # (Auto) 0.0x10^3/uL (0.0-0.2) Sodium Level 137mmol/L (136-145) Potassium Level 4.4mmol/L (3.5-5.1) Chloride Level 101mmol/L (98-107) Carbon Dioxide Level 29mmol/L (21-32) Anion Gap 7 (6-14) Blood Urea Nitrogen 9mg/dL (8-26) Creatinine 0.9mg/dL (0.7-1.3) Estimated GFR (Cockcroft-Gault) 114.9 Glucose Level 249mg/dL (70-99) Calcium Level 9.0mg/dL (8.5-10.1) Glucose (Fingerstick) 225mg/dL (70-99) Medications Current Medications Sodium Chloride (Iv Sodium Chloride 0.9% 1000ml Bag) 1,000 ml @ 1,000 mls/hr 1X ONCE IV Last administered on 09/28/16 11:18; Start 09/28/16 at 10:00; Stop 09/28/16 at 10:59; Status DC Acetaminophen/ Hydrocodone Bitart (Lortab 5/325) 2 tab 1X ONCE PO Last administered on 09/28/16 11:17; Start 09/28/16 at 10:00; Stop 09/28/16 at 10:01 ; Status DC Ondansetron HCl (Zofran Odt) 4 mg 1X ONCE PO Last administered on 09/28/16 11 :25; Start 09/28/16 at 10:00; Stop 09/28/16 at 10:01; Status DC Aspirin (Children'S Aspirin) 324 mg 1X ONCE PO Last administered on 09/28/16 11:18; Start 09/28/16 at 11:00; Stop 09/28/16 at 11:01; Status DC Nitroglycerin (Nitrostat) 0.4 mg PRN Q5MIN PRN SL CHEST PAIN Last administered on 09/28/16 11:53; Start 09/28/16 at 11:00 Morphine Sulfate 2 mg PRN Q1HR PRN IV SEVERE PAIN Last administered on 23:26; Start 09/28/16 at 11:00; Stop 09/28/16 at 23:26; Status DC Enoxaparin Sodium (Lovenox 100mg Syringe) 100 mg 1X ONCE SQ Last administered on 09/28/16 11:25; Start 09/28/16 at 11:00; Stop 09/28/16 at 11:01; Status DC Ondansetron HCl (Zofran) 4 mg PRN Q8HRS PRN IV NAUSEA/VOMITING; Start 09/28/16 at 11:30; Stop 09/29/16 at 11:29 Morphine Sulfate 2 mg PRN Q2HR PRN IV PAIN Last administered on 09/29/16 08:36 ; Start 09/28/16 at 11:30; Stop 09/29/16 at 11:29 Insulin Human Regular 10 unit 10 unit 1X ONCE IV Last administered on 11:43; Start 09/28/16 at 11:45; Stop 09/28/16 at 11:46; Status DC Sodium Chloride (Iv Sodium Chloride 0.9% 1000ml Bag) 1,000 ml @ 60 mls/hr [id number] IV Last administered on 09/29/16 03:13; Start 09/28/16 at 13:35 Insulin Aspart (Novolog) 0-9 UNITS TIDWMEALS SQ Last administered on 09/29/16 08:44; Start 09/28/16 at 17:00 Dextrose 12.5 gm PRN Q15MIN PRN IV SEE COMMENTS; Start 09/28/16 at 13:45 Lidocaine HCl 20 ml 20 ml STK-MED ONCE .ROUTE ; Start 09/28/16 at 13:44; Stop at 13:45; Status DC Heparin Sodium/ Sodium Chloride 500 ml @ As Directed STK-MED ONCE .ROUTE ; Start 09/28/16 at 13:44; Stop 09/28/16 at 13:45; Status DC Iohexol (Omnipaque 300 Mg/ml) 100 ml STK-MED ONCE .ROUTE ; Start 09/28/16 at 13: 50; Stop 09/28/16 at 13:51; Status DC Nitroglycerin (Nitroglycerin) 200 mcg STK-MED ONCE .ROUTE ; Start 09/28/16 at 14 :24; Stop 09/28/16 at 14:25; Status DC Verapamil HCl (Verapamil) 5 mg STK-MED ONCE .ROUTE ; Start 09/28/16 at 14:24; Stop 09/28/16 at 14:25; Status DC Heparin Sodium (Porcine) 10,000 unit STK-MED ONCE .ROUTE ; Start 09/28/16 at 14: 24; Stop 09/28/16 at 14:25; Status DC Fentanyl Citrate (Fentanyl 5ml Vial) 250 mcg STK-MED ONCE .ROUTE ; Start at 14:24; Stop 09/28/16 at 14:25; Status DC Midazolam HCl (Versed) 5 mg STK-MED ONCE .ROUTE ; Start 09/28/16 at 14:24; Stop 09/28/16 at 14:25; Status DC Nitroglycerin (Nitroglycerin) 200 mcg 1X ONCE IART Last administered on 14:30; Start 09/28/16 at 14:30; Stop 09/28/16 at 14:32; Status DC Verapamil HCl (Verapamil) 2.5 mg 1X ONCE IART Last administered on 09/28/16 15:02; Start 09/28/16 at 14:30; Stop 09/28/16 at 14:32; Status DC Heparin Sodium (Porcine) 2,500 unit 1X ONCE IART Last administered on 15:06; Start 09/28/16 at 14:30; Stop 09/28/16 at 14:32; Status DC Heparin Sodium/ Sodium Chloride 1,000 unit 1X ONCE IART Last administered on 15:01; Start 09/28/16 at 14:30; Stop 09/28/16 at 14:32; Status DC Midazolam HCl (Versed) 5 mg 1X ONCE IV Last administered on 09/28/16 15:04; Start 09/28/16 at 14:30; Stop 09/28/16 at 14:32; Status DC Fentanyl Citrate (Fentanyl 5ml Vial) 250 mcg 1X ONCE IV Last administered on 15:04; Start 09/28/16 at 14:30; Stop 09/28/16 at 14:32; Status DC Iohexol (Omnipaque 300 Mg/ml) 100 ml 1X ONCE IART Last administered on 15:01; Start 09/28/16 at 14:30; Stop 09/28/16 at 14:32; Status DC Lidocaine HCl 20 ml 20 ml 1X ONCE IJ Last administered on 09/28/16 15:01; Start 09/28/16 at 14:30; Stop 09/28/16 at 14:34; Status DC Sodium Chloride (Iv Sodium Chloride 0.45%) 1,000 ml @ 60 mls/hr [id number] IV Last administered on 09/28/16 15:15; Start 09/28/16 at 15:15 Oxycodone HCl (Roxicodone) 5 mg 1X ONCE PO Last administered on 09/28/16 20: 32; Start 09/28/16 at 20:30; Stop 09/28/16 at 20:31; Status DC Active Scripts Active Reported No Known Medications Prior To Admisstion (Info) Each 1 Each Vitals/I & O Vital Sign - Last 24 Hours 09/28/16 09/28/16 09/28/16 09/28/16 11:15 11:17 11:42 11:42 Pulse 108 100 103 Resp 20 18 B/P 136/84 132/82 139/85 Pulse Ox 98 99 O2 Delivery Room Air Room Air Room Air 09/28/16 09/28/16 09/28/16 09/28/16 11:47 11:50 11:52 11:53 Pulse 103 104 113 103 Resp 18 B/P 130/65 139/85 120/63 130/65 Pulse Ox 99 97 O2 Delivery Room Air Room Air 09/28/16 09/28/16 09/28/16 09/28/16 11:57 11:57 12:30 12:30 Temp 98.7 98.7 Pulse 116 116 112 Resp 30 B/P 122/65 91/58 Pulse Ox 97 97 98 O2 Delivery Room Air Room Air Room Air Room Air 09/28/16 09/28/16 09/28/16 09/28/16 14:55 15:00 15:02 15:04 Pulse 109 86 92 Resp B/P 97/63 116/77 Pulse Ox 99 96 100 O2 Delivery Nasal Cannula Room Air Nasal Cannula O2 Flow Rate 3.0 3.0 09/28/16 09/28/16 09/28/16 09/28/16 16:00 19:06 19:31 20:00 Temp 99.3 99.3 Pulse 84 Resp B/P 133/82 133/86 Pulse Ox 98 96 97 O2 Delivery Room Air Room Air Room Air Room Air 09/28/16 09/28/16 09/28/16 09/28/16 20:32 21:32 23:26 23:30 Temp 98.8 98.8 Resp 16 13 13 B/P 140/69 Pulse Ox 96 96 97 98 O2 Delivery Room Air Room Air Room Air Room Air 09/28/16 09/29/16 09/29/16 09/29/16 23:56 03:00 05:00 05:29 Temp 99.1 99.1 Resp 15 12 16 14 B/P 141/81 Pulse Ox 96 96 100 96 O2 Delivery Room Air Room Air Room Air Room Air 09/29/16 08:36 Resp 20 Pulse Ox 99 O2 Delivery Room Air Intake and Output 09/28/16 09/28/16 09/29/16 15:00 23:00 07:00 Intake Total 1000 ml 600 ml 891 ml Output Total 700 ml 1100 ml Balance 1000 ml -100 ml -209 ml ALINA TRUONG III DO Sep 29, 2016 10:52
[2016-09-29 12:00] VITALS: BP 142/89
== END 2016-09-29 14:15 | disposition home or self-care (01) | DRG 281 ==
LOC: ER 09:33 → 1 WEST ICU 11:26
PROVIDERS: ADMIT Internal Medicine; ATTEND Internal Medicine
PROC: 4A023N7 Measurement of Cardiac Sampling and Pressure, Left Heart, Percutaneous Approach (ICD-10-PCS; principal; 2016-09-28)
PROC: B2111ZZ Fluoroscopy of Multiple Coronary Arteries using Low Osmolar Contrast (ICD-10-PCS; 2016-09-28)
PROC: B2151ZZ Fluoroscopy of Left Heart using Low Osmolar Contrast (ICD-10-PCS; 2016-09-28)
DX: I21.4 Non-ST elevation (NSTEMI) myocardial infarction (principal); F20.0 Paranoid schizophrenia; F41.9 Anxiety disorder, unspecified; E11.65 Type 2 diabetes mellitus with hyperglycemia; E66.9 Obesity, unspecified; Z68.25 Body mass index [BMI] 25.0-25.9, adult; Z82.49 Family history of ischemic heart disease and other diseases of the circulatory system; Z91.19 Patient's noncompliance with other medical treatment and regimen
CPT/HCPCS: 36415; 71010; 80048; 80061; 80076; 81001; 82947; 83036; 83690; 84443; 84484; 85027; 87641; 93005; 93306; 93458; 96361; 96372; 96374; C1769; C1892; G0481; J1650; J1815; J2250; J2270; J3010; J3490; J7030; Q0162; Q9967; 99285-25

== ENCOUNTER 2016-10-01 10:09 | Emergency (ER) | payer MEDICARE, MEDICAID ==
[~2016-10-01] VITALS: Ht 180.3 cm; Wt 89.8 kg
--- NOTE | 2016-10-01 10:55 | EKG ---
[facility] [address] [place] [address] Test Date: 2016-10-01 Test Time: 10:29:28 Pat Name: ERASTO COVINGTON Department: Room: Gender: M School [employer]: : 1980 Requested By: BEBETO CARRILLO Order Number: [id number] Reading MD: Demetri Mahoney Measurements Intervals [place] Rate: 103 P: 64 ID: 142 QRS: 50 QRSD: 80 T: 29 QT: 334 QTc: 439 Interpretive Statements SINUS TACHYCARDIA MILD NONSPECIFIC ST-T WAVE CHANGES. RI6.01 Unconfirmed report Compared to ECG 09/28/2016 10:58:17 Sinus rhythm no longer present Electronically Signed On 10-08-2016 10:29:53 [employer] by Demetri Mahoney
--- NOTE | 2016-10-01 11:10 | RAD ---
Chest, 2 views, 10/01/2016: History: Shortness of breath Comparison is made to a study from 09/28/2016. The heart size and pulmonary vascularity are normal. The lungs are clear. There is no evidence of pleural fluid. IMPRESSION: No acute cardiopulmonary abnormality is detected.
[2016-10-01 11:34] LABS: BASO % 1 % (0-3); EOS % 5 % (0-3); HEMATOCRIT 45.2 % (39.0-53.0); HEMOGLOBIN 14.4 g/dL (13.0-17.5); LYMPH # 2.2 x10^3/uL (1.0-4.8); LYMPH % 49 % (24-48); MEAN CORPUSCULAR HEMOGLOBIN 24 pg (25-35); MEAN CORPUSCULAR HGB CONC 32 g/dL (31-37); MEAN CORPUSCULAR VOLUME 76 fL (79-100); MONO % 6 % (0-9); NEUT % 38 % (31-73); PLATELET COUNT 265 x10^3/uL (140-400); RED BLOOD COUNT 5.95 x10^6/uL (4.30-5.70); RED CELL DISTRIBUTION WIDTH 13.2 % (11.5-14.5); WHITE BLOOD COUNT 4.4 x10^3/uL (4.0-11.0)
[2016-10-01 11:44] LABS: CALCIUM 9.4 mg/dL (8.5-10.1); GFR 101.7; POTASSIUM 4.2 mmol/L (3.5-5.1)
[2016-10-01 11:50] LABS: ALBUMIN 3.8 g/dL (3.4-5.0); ALBUMIN/GLOBULIN RATIO 1.1 (1.0-1.7); TOTAL BILIRUBIN 0.5 mg/dL (0.2-1.0); TOTAL PROTEIN 7.4 g/dL (6.4-8.2)
[2016-10-01] MEDS ORDERED: LIDO:MAALOX:DONNATAL 1:1:1 15 ML SINGLE DOSE SWSW ONE (12:30)
[2016-10-01] MEDS ORDERED: IOHEXOL 300 MG/ML 75 ML VIAL IV ONE (13:00)
[2016-10-01] MEDS ORDERED: CONTRAST GIVEN MC PRN (13:15)
[2016-10-01] MEDS: NITROGLYCERIN SUBLINGUAL 0.4 MG BOTTLE OF 25. SL PRN ×2 (13:26→13:57)
--- NOTE | 2016-10-01 13:50 | RAD ---
CT Pulmonary arteriogram: Indication:Intermittant chest pain. Date of Exam:10/01/16 . Comparison:None available Technique: Contiguous helical acquisitions are obtained through the chest during intravenous administration of 75 cc Omnipaque 300 . Coronal and sagittal MIP images were obtained and reviewed. Findings: The pulmonary arteries are negative for filling defects to suggest pulmonary emboli. No hilar or mediastinal abnormalities are noted. No pericardial pathology is noted and the aorta appears unremarkable. The lungs are clear without infiltrate or mass. The pleural surfaces are smooth and no pleural fluid is seen. The visualized structures of the upper abdomen are unremarkable. Impression: 1. CT pulmonary arteriography fails to reveal pulmonary emboli or other significant pathology. PQRS Compliance Statement: One or more of the following individualized dose reduction techniques were utilized for this examination: 1. Automated exposure control 2. Adjustment of the mA and/or kV according to patient size 3. Use of iterative reconstruction technique
[2016-10-01 13:57] VITALS: BP 145/96
[2016-10-01] MEDS ORDERED: ISOS30TA4 PO (14:05)
--- NOTE | 2016-10-01 14:06 | PHYS DOC ---
Past Medical History Past Medical History: Diabetes-Type II, Other Additional Past Medical Histor: PARANOID SCHIZOPHRENIC Past Surgical History: No Surgical History Additional Past Surgical Histo: CATARACT BILATERAL Alcohol Use: None Drug Use: None Adult General Chief Complaint Chief Complaint: SHORTNESS OF BREATH HPI HPI Patient is a 36 year old male who presents with continued intermittent chest pains since recent hospitalization 3 days ago with cardiac catheterization for NSTEMI. States he has intermittent left upper chest pains that are achy in nature and has right-sided chest pains are burning in nature. Sometimes symptoms are associated with dyspnea. He has tried Tums, but has not filled his antacid medication as prescribed during recent discharge. He denies cough, fever or chills, palpitations, diaphoresis, exertional symptoms, orthopnea, leg pain or swelling, hemoptysis, abdominal pain, nausea or vomiting. Of note he did not have coronary artery disease on cardiac catheterization performed on 09/28/16. Review of Systems Review of Systems Constitutional: Denies fever or chills [] Eyes: Denies change in visual acuity, redness, or eye pain [] HENT: Denies nasal congestion or sore throat [] Respiratory: Denies cough [] Cardiovascular: No additional information not addressed in HPI [] GI: Denies abdominal pain, nausea, vomiting, bloody stools or diarrhea [] : Denies dysuria or hematuria [] Musculoskeletal: Denies back pain or joint pain [] Integument: Denies rash or skin lesions [] Neurologic: Denies headache, focal weakness or sensory changes [] Endocrine: Denies polyuria or polydipsia [] Current Medications Current Medications Current Medications Medications (Trade) Dose Ordered Sig/Joe Start Time Stop Time Status Last Admin Dose Admin Info (Do NOT chart on this entry -- for MONITORING) 1 each PRN DAILY PRN 10/01/16 13:15 10/01/16 14:25 DC Iohexol (Omnipaque 300 Mg/ml) 75 ml 1X ONCE 10/01/16 13:00 10/01/16 13:01 DC 10/01/16 13:11 75 ML Multi-Ingredient Mouthwash/Gargle (Gi Cocktail Single Dose) 15 ml 1X ONCE 10/01/16 12:30 10/01/16 12:31 DC 10/01/16 13:26 15 ML Nitroglycerin (Nitrostat) 0.4 mg PRN Q5MIN PRN 10/01/16 12:30 10/01/16 14:25 DC 10/01/16 13:57 0.4 MG Allergies Allergies Allergies Coded Allergies Type Severity Reaction Last Updated Verified No Known Drug Allergies 12/23/13 No Physical Exam Physical Exam Constitutional: Well developed, well nourished, no acute distress, non-toxic appearance. [] HENT: Normocephalic, atraumatic, bilateral external ears normal, oropharynx moist, no oral exudates, nose normal. [] Eyes: PERRLA, EOMI. [] Neck: Normal range of motion, supple, no stridor. [] Cardiovascular:Heart rate regular rhythm [] Lungs & Thorax: Bilateral breath sounds clear to auscultation. Anterior chest wall tenderness duplicates symptoms. No palpable or visual abnormality of the chest wall [] Abdomen: Bowel sounds normal, soft, no tenderness. [] Skin: Warm, dry, no erythema, no rash. [] Back: No tenderness, no CVA tenderness. [] Extremities: No tenderness, ROM intact, no edema, no palpable cord. [] Neurologic: Alert and oriented X 3, normal motor function, normal sensory function, no focal deficits noted. [] Psychologic: Affect normal, judgement normal, mood normal. [] Current Patient Data Vital Signs Vital Signs Date Time Temp Pulse Resp B/P Pulse Ox O2 Delivery O2 Flow Rate FiO2 10/01/16 13:57 117 145/96 10/01/16 13:55 16 98 Room Air 10/01/16 10:44 98.5 98.5 Lab Values Laboratory Tests Test 10/01/16 11:19 White Blood Count 4.4x10^3/uL (4.0-11.0) Red Blood Count 5.95x10^6/uL (4.30-5.70) H Hemoglobin 14.4g/dL (13.0-17.5) Hematocrit 45.2% (39.0-53.0) Mean Corpuscular Volume 76fL (79-100) L Mean Corpuscular Hemoglobin 24pg (25-35) L Mean Corpuscular Hemoglobin Concent 32g/dL (31-37) Red Cell Distribution Width 13.2% (11.5-14.5) Platelet Count 265x10^3/uL (140-400) Neutrophils (%) (Auto) 38% (31-73) Lymphocytes (%) (Auto) 49% (24-48) H Monocytes (%) (Auto) 6% (0-9) Eosinophils (%) (Auto) 5% (0-3) H Basophils (%) (Auto) 1% (0-3) Neutrophils # (Auto) 1.7x10^3uL (1.8-7.7) L Lymphocytes # (Auto) 2.2x10^3/uL (1.0-4.8) Monocytes # (Auto) 0.3x10^3/uL (0.0-1.1) Eosinophils # (Auto) 0.2x10^3/uL (0.0-0.7) Basophils # (Auto) 0.0x10^3/uL (0.0-0.2) Sodium Level 139mmol/L (136-145) Potassium Level 4.2mmol/L (3.5-5.1) Chloride Level 98mmol/L (98-107) Carbon Dioxide Level 33mmol/L (21-32) H Anion Gap 8 (6-14) Blood Urea Nitrogen 12mg/dL (8-26) Creatinine 1.0mg/dL (0.7-1.3) Estimated GFR (Cockcroft-Gault) 101.7 BUN/Creatinine Ratio 12 (6-20) Glucose Level 294mg/dL (70-99) H Calcium Level 9.4mg/dL (8.5-10.1) Total Bilirubin 0.5mg/dL (0.2-1.0) Aspartate Amino Transferase (AST) 16U/L (15-37) Alanine Aminotransferase (ALT) 29U/L (16-63) Alkaline Phosphatase 62U/L (46-116) Troponin I Quantitative 0.189ng/mL (0.000-0.055) Total Protein 7.4g/dL (6.4-8.2) Albumin 3.8g/dL (3.4-5.0) Albumin/Globulin Ratio 1.1 (1.0-1.7) Laboratory Tests 10/01/16 11:19 Laboratory Tests 10/01/16 11:19 EKG EKG EKG as interpreted by me as normal sinus rhythm, rate 102, no ST-T changes, normal intervals, no ectopy Radiology/Procedures Radiology/Procedures Chest xray as interpreted by me with no acute cardiopulmonary disease process CT angiogram chest Impression: 1. CT pulmonary arteriography fails to reveal pulmonary emboli or other significant pathology. DICTATED and SIGNED BY: GUY ROOT MD DATE: 10/01/16 2913 Course & Med Decision Making Course & Med Decision Making Pertinent Labs and Imaging studies reviewed. (See chart for details) Workup remarkable for continued elevated troponin. Had negative imaging otherwise. Discussed case with [facility], who discussed case with Dr. Conde; they recommend starting isosorbide mononitrate 30 mg for possible vasospasm or anginal pain. They state he did not have any evidence of coronary vasospasm with recent studies otherwise. He should follow-up with his primary care doctor and cardiology clinic closely. Strict return precautions given. He understands and agrees with plan. Dragon Disclaimer Dragon Disclaimer This electronic medical record was generated, in whole or in part, using a voice recognition dictation system. Departure Departure Impression: Primary Impression: Chest pain Additional Impressions: Elevated troponin Uncontrolled diabetes mellitus with hyperglycemia, without long-term current use of insulin Disposition: 01 HOME, SELF-CARE Condition: STABLE Referrals: EVANGELIST REYES (PCP) FRANCISCO JAVIER CONDE MD Patient Instructions: Chest Pain (Nonspecific), [id number] Additional Instructions: Take isosorbide mononitrate to help with chest pain. Also take your other prescriptions from recent hospitalization. Follow-up with cardiology clinic and your primary care doctor. Please call cardiology clinic for appointment. Return for any concerns. Scripts Isosorbide Mononitrate (Isosorbide Mononitrate Er)30 Mg Tab.er.[id number] Tab PO DAILY #30 TAB Ref 0 Prov:Renan TODD MD 10/01/16 Problem Qualifiers Primary Impression: Chest pain Chest pain type: other chest pain Qualified Code: R07.89 - Other chest pain Additional Impressions: Uncontrolled diabetes mellitus with hyperglycemia, without long-term current use of insulin Diabetes mellitus type: type 2 Qualified Code: E11.65 - Type 2 diabetes mellitus with hyperglycemia Renan TODD MD Oct 01, 2016 14:06
== END 2016-10-01 14:09 | disposition home or self-care (01) ==
LOC: ER 10:09
DX: R07.9 Chest pain, unspecified (principal); E11.9 Type 2 diabetes mellitus without complications; R79.89 Other specified abnormal findings of blood chemistry; E11.65 Type 2 diabetes mellitus with hyperglycemia; Z79.4 Long term (current) use of insulin
CPT/HCPCS: 36415; 71020; 71275; 80053; 84484; 85027; 93005; 99285; Q9967